=== PATIENT | female | born 1955 | race American Indian/Alaskan Native ===

== ENCOUNTER 2019-06-30 11:36 | Outpatient (CLI) | payer BC ==
--- NOTE | 2019-06-30 16:07 | XRay Report ---
RIGHT KNEE HISTORY: Pain. COMPARISON: None. TECHNIQUE: 3 views of the right knee obtained. FINDINGS: Bones: No fracture or dislocation. Joint spaces: Mild medial and lateral joint space narrowing with small osteophytes. Small patellofemo ral osteophytes. Soft tissues: Fullness in the suprapatellar bursa suggests a small knee joint effusion. Additional findings: None. IMPRESSION: 1. Moderate osteoarthritis. 2. Small knee joint effusion. Signer Name: Fredo Altman MD Signed: 06/30/2019 4:02 PM Workstation Name: [id number]
== END 2019-06-30 11:37 | disposition home or self-care (01) ==
LOC: LAB 11:36 → XRAY 11:36
PROVIDERS: ATTEND Internal Medicine
DX: M17.11 Unilateral primary osteoarthritis, right knee (principal)